=== PATIENT | female | born 1940 | race Caucasian/White ===

== ENCOUNTER → 2017-10-17 14:37 | Outpatient (CLI) | payer MEDICARE, BC | END | disposition home or self-care (01) | LOC: D.MAMMO 10-13 16:15 | DX: Z12.31 Encounter for screening mammogram for malignant neoplasm of breast (principal) ==

== ENCOUNTER → 2017-12-10 15:30 | Outpatient (CLI) | payer MEDICARE, BC | END | disposition home or self-care (01) | LOC: D.MAMMO 09:00 | DX: R92.8 Other abnormal and inconclusive findings on diagnostic imaging of breast (principal) ==

== ENCOUNTER → 2017-12-24 13:22 | Outpatient (CLI) | payer MEDICARE, BC | END | disposition home or self-care (01) | LOC: D.US 13:22 | DX: N60.01 Solitary cyst of right breast (principal) ==

== ENCOUNTER 2018-01-09 07:05 | Day surgery (SDC) | payer MEDICARE, BC ==
--- NOTE | ~2018-01-09 | OP ---
PATIENT NAME: DONOVAN MARQUEZ MEDICAL RECORD: [id number] :36 LOCATION:D.OPS ADMISSION DATE: SURGEON: BOOM LOMAS MD DATE OF OPERATION: 01/09/2018 PREOPERATIVE DIAGNOSES: 1. Right breast mass. 2. Hypertension. 3. Hypothyroidism. POSTOPERATIVE DIAGNOSES: 1. Right breast mass. 2. Hypertension. 3. Hypothyroidism. PROCEDURE: Needle local excision of right breast mass. SURGEON: Boom Lomas MD REPORT OF PROCEDURE: Preoperatively, the patient underwent sterotactic needle placement. A wire was projecting out of the superior lateral aspect of the right breast. We made a skin incision just inferior to this. Electrocautery was used to dissect through to the wire and the wire was pulled through the wound. We followed the wire down and removed a core of tissue around this. Once the core tissue was removed, it was marked appropriately and sent off to radiology. At this point, we could see that the specimen contained the biopsy clip along with the mass. The wire was also noted to be intact. We irrigated out the wound with normal saline and closed the subcutaneous tissues with interrupted 3-0 Vicryl and the skin was closed with running subcutaneous 5-0 Monocryl. COMPLICATIONS: None. CONDITION: Stable. ANESTHESIA: General endotracheal and local. BLOOD LOSS: Minimal. TRANSINT:[id number] Voice Confirmation ID: [id number] DOCUMENT ID: [id number] BOOM LOMAS MD at 1319 CC: ANANYA RENE [id number] DICTATION DATE: 01/09/18 1140 [facility] SE[facility]ER: 01/09/18 1214 [facility] 01/09/18 [place] [id number]
[~2018-01-09 07:05] MED LIST: ESTRACE1 MG PO; HYDROCHLOROTH12.5 M1 PO; INDERAL10 MG PO; LEXAPRO10 MG PO; PROVERA2.5 MG PO; SYNTHROID25 MCG PO; XANAX0.25 MG PO
[2018-01-09 07:33] LABS: BASOPHILS 0.3 % (0-2); EOSINOPHILS 0.8 % (0-7); HEMATOCRIT 40.5 % (36.0-48.0); HEMOGLOBIN 13.3 g/dL (12-16); IMMATURE GRANULOCYTES 0.2 % (0-5); LYMPHOCYTES 19.7 % (15-50); MCH 30.8 pg (26.0-34.0); MCHC 32.8 g/dL (31.0-37.0); MCV 93.8 fL (80.0-100.0); MEAN PLATELET VOLUME 9.5 fL (7.4-10.4); MONOCYTES 10.5 % (2-11); NEUTROPHILS 68.5 % (40-80); PLATELET COUNT 287 10x3/uL (130-400); RBC 4.32 10x6/uL (4.00-5.40); RDW 13.3 % (11.5-14.5); WBC 6.2 10x3/uL (4.8-10.8)
[2018-01-09 07:44] LABS: CALC OSMOLALITY 273 mosm/kg (275-300); CALCIUM 9.5 mg/dL (8.5-10.1); CARBON DIOXIDE 28.9 mmol/L (21.0-32.0); CHLORIDE - SERUM 101 mmol/L (98-107); CREATININE - SERUM 0.7 mg/dL (0.6-1.3); GLUCOSE 119 mg/dL (74-106); POTASSIUM - SERUM 3.6 mmol/L (3.5-5.1); SODIUM 137 mmol/L (136-145); UREA NITROGEN 9 mg/dL (7-18); eGFR NON AFRICAN AMERICAN 85 mL/min (90-120)
[2018-01-09 08:29] VITALS: BP 147/65; BMI 22.0
[2018-01-09] MEDS ORDERED: ULTRAM50 MG PO (11:36)
== END 2018-01-09 14:06 | disposition home or self-care (01) ==
LOC: D.OPS 07:05 → D.MAMMO 09:30 → D.PAN 09:30 → D.OPS 14:06
PROVIDERS: Surgery
DX: N63.11 Unspecified lump in the right breast, upper outer quadrant (principal); I10 Essential (primary) hypertension; Z01.812 Encounter for preprocedural laboratory examination

== ENCOUNTER → 2018-07-30 14:53 | Outpatient (CLI) | payer MEDICARE, BC ==
[~2018-07-30 14:53] MED LIST changes: +ULTRAM50 MG PO
== END | disposition home or self-care (01) ==
LOC: D.MAMMO 09:30
DX: C50.411 Malignant neoplasm of upper-outer quadrant of right female breast (principal)

== ENCOUNTER 2019-09-22 09:00 | Outpatient (CLI) | payer MEDICARE, BC | END 2019-09-22 10:00 | disposition home or self-care (01) | LOC: D.MAMMO 09:00 | PROVIDERS: ATTEND Internal Medicine Hematology & Oncology | DX: C50.411 Malignant neoplasm of upper-outer quadrant of right female breast (principal) ==

== ENCOUNTER 2021-04-23 15:00 | Outpatient (CLI) | payer MEDICARE, BC | END 2021-04-23 23:59 | disposition home or self-care (01) | LOC: D.MAMMO 15:00 | PROVIDERS: ATTEND Internal Medicine Medical Oncology | DX: C50.411 Malignant neoplasm of upper-outer quadrant of right female breast (principal); Z78.0 Asymptomatic menopausal state ==

== ENCOUNTER → 2021-04-27 15:34 | Outpatient (CLI) | payer MEDICARE, BC | END | disposition home or self-care (01) | LOC: D.US 15:30 | PROVIDERS: ATTEND Nurse Practitioner Family | DX: R60.0 Localized edema (principal) ==